=== PATIENT | male | born 1970 | race African-American/Black ===

== ENCOUNTER 2021-06-23 05:21 | Emergency (ER) | payer OTHER ==
[~2021-06-23] VITALS: Ht 170.2 cm; Wt 136.1 kg
[2021-06-23 05:40] VITALS: BP_SYST 120
--- NOTE | 2021-06-23 05:40 | NUR ---
Patient to ER bed 4 to gown for evaluation. Side rails up.
--- NOTE | 2021-06-23 06:12 | NUR ---
Dr. Ware bedside for pt eval
[2021-06-23] MEDS ORDERED: IBUPROFEN 600 MG TABLET PO ONE (06:15)
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
[2021-06-23] MEDS ORDERED: SOM350 PO (06:25)
[2021-06-23] MEDS ORDERED: NAPR-688 PO (06:25)
[2021-06-23] MEDS ORDERED: TRAM50TA PO (06:25)
[2021-06-23] MEDS ORDERED: IBUPROFEN 600 MG TABLET ONE (06:26)
--- NOTE | 2021-06-23 06:30 | NUR ---
Pt taken to Radiology in stable condition
--- NOTE | 2021-06-23 06:50 | NUR ---
Pt back from Radiology in stable condition, procedure was well tolerated
--- NOTE | 2021-06-23 06:58 | NUR ---
Dr. Ware bedside for pt update and followup
[2021-06-23 07:05] VITALS: BP_SYST 120
--- NOTE | 2021-06-23 07:05 | NUR ---
Patient given written and verbal discharge instructions and verbalizes understanding. ER MD discussed with patient the results and treatment provided. Patient in stable condition. ID arm band removed. Rx of Naproxen, Soma, and Tramadol given. Patient educated on pain management and to follow up with PMD. Pain Scale 0/10 Opportunity for questions provided and answered. Medication side effect fact sheet provided.
== END 2021-06-23 07:05 | disposition home or self-care (01) ==
LOC: SED 05:21
DX: S16.1XXA Strain of muscle, fascia and tendon at neck level, initial encounter (principal); S39.012A Strain of muscle, fascia and tendon of lower back, initial encounter; Z88.8 Allergy status to other drugs, medicaments and biological substances; Z79.899 Other long term (current) drug therapy; V49.49XA Driver injured in collision with other motor vehicles in traffic accident, initial encounter; Y93.89 Activity, other specified; Y92.89 Other specified places as the place of occurrence of the external cause; Y99.8 Other external cause status
CPT/HCPCS: 72040-TC; 72100-TC; 99284